=== PATIENT | female | born 1995 | race Two or more races ===

== ENCOUNTER 2023-03-09 14:23 | Emergency (ER) | payer OTHER ==
[~2023-03-09] VITALS: Ht 157.5 cm; Wt 53.1 kg
[2023-03-09] MEDS ORDERED: FOLIC ACID0.4 MG (14:38)
[2023-03-09 16:25] LABS: INR 0.98; PARTIAL THROMBOPLASTIN TIME 24.4 SECONDS (22.0-34.0); PROTHROMBIN TIME 10.3 SECONDS (9.0-11.5)
[2023-03-09 17:06] LABS: CALCIUM 8.9 mg/dL (8.5-10.1); CREATININE SERUM 0.37 mg/dL (0.55-1.02); GFR 207.95; POTASSIUM 4.14 mEq/L (3.5-5.1)
[2023-03-09 18:06] LABS: HEMOGLOBIN 12.4 g/dL (12.0-15.00); MEAN CELL VOLUME 87.4 fL (80.00-100.00); MEAN CORPUSCULAR HEMOGLOBIN 29.3 pg (27.00-32.0); MEAN CORPUSCULAR HGB CONC 33.5 g/dl (32.0-36.0); PLATELET COUNT 183 K/uL (150-450); RED BLOOD COUNT 4.23 M/uL (4.00-6.00); RED CELL DISTRIBUTION WIDTH 12.7 % (11.5-14.5)
[2023-03-09 19:26] LABS: URINE APPEARANCE Clear; URINE BILIRRUBIN Negative (NEGATIVE); URINE BLOOD Trace; URINE COLOR Yellow; URINE GLUCOSE Negative (NEGATIVE); URINE LEUKOCYTE Negative; URINE NITRATE Negative; URINE PROTEIN Trace (NEGATIVE)
[2023-03-09 19:32] LABS: URINE BACTERIA 289.7 uL (0.0-1933); URINE EPITHELIAL CELLS 16.2 uL (0.0-38.8); URINE RBC 20.5 uL (0.0-20.8); URINE WBC 7.2 uL (0.0-23.2)
[2023-03-09] MEDS ORDERED: ZOFRAN8 MG PO (21:15)
== END 2023-03-09 22:27 | disposition home or self-care (01) ==
LOC: ER 14:23
PROVIDERS: General Practice
DX: Z34.90 Encounter for supervision of normal pregnancy, unspecified, unspecified trimester (principal); Z3A.10 10 weeks gestation of pregnancy; Z88.6 Allergy status to analgesic agent; Z91.013 Allergy to seafood

== ENCOUNTER 2023-08-22 19:27 | Inpatient (IN) | payer OTHER ==
[~2023-08-22] VITALS: Ht 160 cm; Wt 1.8 kg
[~2023-08-22 19:27] MED LIST: FOLIC ACID0.4 MG; ZOFRAN8 MG PO
[2023-08-22] MEDS ORDERED: PRENATAL TABLE1 EAC4 PO (19:28)
[2023-08-22] MEDS ORDERED: RINGERS SOLUTION,LACTATED 1,000 ML IV SCH (19:30)
[2023-08-22] MEDS ORDERED: BETAMETHASONE ACETATE,SOD PHOS 30 MG/5 ML ML IM STA (19:31)
[2023-08-22] MEDS ORDERED: NIFEDIPINE 20 MG CAPSULE PO STA (20:27)
[2023-08-22] MEDS ORDERED: NIFEDIPINE 20 MG CAPSULE PO ONE (20:27)
[2023-08-22] MEDS ORDERED: NIFEDIPINE 10 MG CAPSULE PO PRN (20:45)
[2023-08-22 20:53] LABS: HEMATOCRIT 32.1 % (36.0-45.00); HEMOGLOBIN 11.4 g/dL (12.0-15.00); MEAN CORPUSCULAR HEMOGLOBIN 31.8 pg (27.00-32.0); MEAN CORPUSCULAR HGB CONC 35.4 g/dl (32.0-36.0); PH,URINE 6.5 (5.0-8.0); RED BLOOD COUNT 3.57 M/uL (4.00-6.00); RED CELL DISTRIBUTION WIDTH 13.8 % (11.5-14.5); URINE APPEARANCE Turbid; URINE BILIRRUBIN Negative (NEGATIVE); URINE BLOOD Negative; URINE COLOR Yellow; URINE GLUCOSE Negative (NEGATIVE); URINE LEUKOCYTE Large; URINE NITRATE Negative; URINE PROTEIN 30 (NEGATIVE)
[2023-08-22 20:56] LABS: URINE RBC 12.5 uL (0.0-20.8); URINE WBC 457.7 uL (0.0-23.2)
[2023-08-22 21:00] LABS: PLATELET COUNT 130 K/uL (150-450)
[2023-08-22 21:13] LABS: INR 0.95; PARTIAL THROMBOPLASTIN TIME 26.4 SECONDS (22.0-34.0)
[2023-08-22 21:14] LABS: URINE EPITHELIAL CELLS > 201.7 uL (0.0-38.8); URINE YEAST FEW /hpf
[2023-08-22] MEDS ORDERED: CEFAZOLIN SODIUM 1,000 MG VIAL IV SCH (21:28)
[2023-08-23] MEDS ORDERED: NIFEDIPINE 10 MG CAPSULE PO STA (01:49)
[2023-08-23] MEDS ORDERED: hydrOXYzine PAMOATE 50 MG CAPSULE PO ONE (02:00)
[2023-08-23] MEDS ORDERED: NIFEDIPINE 30 MG TAB.SA.OSM PO SCH (11:00)
[2023-08-23] MEDS ORDERED: BETAMETHASONE ACETATE,SOD PHOS 30 MG/5 ML ML IM ONE (20:00)
[2023-08-23] MEDS ORDERED: BETAMETHASONE ACETATE,SOD PHOS 30 MG/5 ML ML ONE (20:27)
[2023-08-24] MEDS ORDERED: ERYTHROMYCIN BASE 3.5 GM OINT...G. OP ONE (13:21)
[2023-08-24] MEDS ORDERED: OXYTOCIN 10 UNITS/ML VIAL ONE ×2 (13:21→18:33)
[2023-08-24] MEDS ORDERED: MEPERIDINE HCL/PF 50 MG/ML VIAL IM PRN (15:00)
[2023-08-24] MEDS ORDERED: RINGERS SOLUTION,LACTATED 1,000 ML IV SCH (15:00)
[2023-08-24] MEDS ORDERED: OXYTOCIN 1,000 ML IV SCH (15:00)
[2023-08-24] MEDS ORDERED: ERYTHROMYCIN BASE 1 GM TUBE OP SCH (15:00)
[2023-08-24] MEDS ORDERED: PROMETHAZINE HCL 25 MG/ML AMPUL IM PRN (15:00)
[2023-08-24] MEDS ORDERED: CHLORHEXIDINE GLUCONATE 120 ML BOTTLE TOP SCH (15:00)
[2023-08-24 15:50] LABS: ABG PH 7.247 (7.35-7.45)
[2023-08-24 15:51] LABS: ABG PO2 15.9 mmHg (80-100); ABG pCO2 41.8 mmHg (35-45); ABG pCO2 53.3 mmHg (35-45); BASE EXCESS -5.2 mmol/l; BICARBONATE 22.7 mmol/l (23-25); SaO2 15.2 %; Tco2 24.3 mmol/l; o2 21 %
[2023-08-24 15:52] LABS: ABG PO2 32.7 mmHg (80-100); BASE EXCESS -4.8 mmol/l; BICARBONATE 21.1 mmol/l (23-25); SaO2 55.8 %; Tco2 22.4 mmol/l; o2 21 %
[2023-08-24] MEDS ORDERED: OXYTOCIN 10 UNITS/ML VIAL IV ONE (16:00)
[2023-08-24] MEDS ORDERED: ERYTHROMYCIN BASE 1 GM TUBE OP ONE (16:00)
[2023-08-24] MEDS ORDERED: PROMETHAZINE HCL 25 MG/ML AMPUL ONE (18:32)
[2023-08-24] MEDS ORDERED: CEFAZOLIN SODIUM 1,000 MG VIAL ONE (19:10)
[2023-08-24 20:07] LABS: HEMATOCRIT 28.2 % (36.0-45.00); HEMOGLOBIN 9.6 g/dL (12.0-15.00); MEAN CORPUSCULAR HEMOGLOBIN 30.6 pg (27.00-32.0); RED BLOOD COUNT 3.14 M/uL (4.00-6.00)
[2023-08-24 20:51] LABS: PLATELET COUNT 120 K/uL (150-450)
[2023-08-25] MEDS ORDERED: OxyCODONE HCL/APAP UD (PERCOCET) PO PRN (09:00)
== END 2023-08-27 10:53 | disposition home or self-care (01) | DRG 786 ==
LOC: LDR 19:27 → OB/GYN 19:27 → LDR 21:39 → OB/GYN 08-24 17:05
PROVIDERS: ADMIT Obstetrics & Gynecology; ATTEND Obstetrics & Gynecology
PROC: 4A1HXCZ Monitoring of Products of Conception, Cardiac Rate, External Approach (ICD-10-PCS; 2023-08-22)
PROC: 10D00Z1 Extraction of Products of Conception, Low, Open Approach (ICD-10-PCS; principal; 2023-08-24 15:00)
DX: O30.013 Twin pregnancy, monochorionic/monoamniotic, third trimester (principal); O60.14X2 Preterm labor third trimester with preterm delivery third trimester, fetus 2; Z3A.34 34 weeks gestation of pregnancy; Z37.2 Twins, both liveborn; O36.51 Maternal care for known or suspected placental insufficiency